=== PATIENT | male | born 1980 | race Caucasian/White ===

== ENCOUNTER 2017-05-21 09:02 | Emergency (ER) | payer MEDICAID ==
[~2017-05-21] VITALS: Ht 152.4 cm; Wt 90.5 kg
[~2017-05-21 09:02] MED LIST: TRAM50TA2 PO
[2017-05-21 09:06] VITALS: Ht 152.4 cm; Wt 90.5 kg
[2017-05-21] MEDS ORDERED: MECLIZINE 12.5 MG TAB PO STA (09:26)
[2017-05-21] MEDS ORDERED: ONDANSETRON (ODT) 4 MG TAB ODT STA (09:26)
--- NOTE | 2017-05-21 10:17 | RADRPT ---
PROCEDURE: CT brain without contrast CLINICAL INDICATION: Head pressure, headache, vertigo and nausea/vomiting TECHNIQUE: CT of the brain without contrast was performed on a multidetector CT scanner, with multi planar reformats. One or more of the following dose reduction techniques were used: Automated expos ure control, adjustment in mA and / or kV according to patient size, use of iterative reconstructive technique. CTDIvol = 44 mGy; DLP = 720 mGy-cm. COMPARISON: None available FINDINGS: No acute intracranial hemorrhage is identified. No extra-axial fluid collection is seen. There is no mass effect. No midline shift is identified. Ventricles and sulci are within normal limits for size and configuration. The density of the brain is within normal limits. Garibay-white differentiation is preserved. Osseous structures are unremarkable. Mastoid air cells and imaged paranasal sinuses grossly clear. IMPRESSION: Unremarkable noncontrast CT of the brain. RPTAT: VV .Brad Dobbins MD, MD Date Time Electronically viewed and signed by .Brad Dobbins MD, on 05/21/2017 10:17 .O/
[2017-05-21] MEDS ORDERED: DIAZEPAM 5 MG TAB PO STA (10:22)
[2017-05-21] MEDS ORDERED: ACETAMINOPHEN 500 MG TAB PO STA (10:23)
[2017-05-21] MEDS ORDERED: MECL-77 PO (10:26)
[2017-05-21] MEDS ORDERED: ONDA4TAB14 PO (10:26)
[2017-05-21] MEDS ORDERED: ACET325T33 PO (10:26)
--- NOTE | 2017-05-21 10:31 | ERD ---
ER Documentation Chief Complaint Date/Time DATE: 05/21/17 TIME: 10:29 Chief Complaint Complains of dizziness since yesterday HPI This is a 37-year-old male presenting to the emergency department complaining of headache and dizziness since yesterday. Patient describes dizziness when he turns his head. He admits to having nausea. He describes his headache as a pressure-like rating it moderate in severity. Patient denies any ear pain, tinnitus, vomiting, vision changes or lethargy. He denies taking any medications for this. Denies trauma ROS All systems reviewed and are negative except as per history of present illness. Medications Home Meds Active Scripts Meclizine Hcl* (Meclizine Hcl*) 25 Mg Tablet, 25 MG PO Q8H Y for DIZZINESS, #30 TAB Prov:LAMINE CARRENO PA-C 05/21/17 Acetaminophen* (Tylenol*) 325 Mg Tablet, 2 TAB PO Q4 Y for PAIN AND OR ELEVATED TEMP, #30 TAB Prov:LAMINE CARRENO PA-C 05/21/17 Ondansetron (Ondansetron Odt) 4 Mg Tab.rapdis, 4 MG PO Q6H Y for NAUSEA AND/OR VOMITING, #20 TAB Prov:LAMINE CARRENO PA-C 05/21/17 Tramadol HCl (Tramadol HCl) 50 Mg Tab, 50 MG PO Q6 Y for PAIN, #10 TAB Prov:WU CALVERT 06/23/15 Allergies Allergies: Coded Allergies: No Known Allergy (Unverified , 07/30/13) PMhx/Soc Medical and Surgical Hx: pt denies Medical Hx, pt denies Surgical Hx History of Surgery: No Anesthesia Reaction: No Hx Neurological Disorder: No Hx Respiratory Disorders: No Hx Cardiac Disorders: No Hx Psychiatric Problems: No Hx Miscellaneous Medical Probl: No Hx Alcohol Use: No Hx Substance Use: No Hx Tobacco Use: No Smoking Status: Never smoker Physical Exam Vitals Vital Signs Date Time Temp Pulse Resp B/P Pulse Ox O2 Delivery O2 Flow Rate FiO2 05/21/17 09:06 97.4 74 20 138/84 96 Physical Exam GENERAL: well-developed/well-nourished, in no apparent distress, non-toxic appearing HENT: NC/AT, bilateral tympanic membrane is normal with good cone of light, nares patent, oropharynx clear without exudates EYES: Conjunctiva normal, PERRLA, EOMI, no nystagmus noted NECK: Supple, no lymphadenopathy PULM: CTA bilaterally, no rales, rhonchi, or wheezing heard CV: Normal S1S2, RRR, good capillary refill GI: Soft, non-distended, normal bowel sounds, non-tender BACK: No midline tenderness, no masses, No CVAT EXT: No clubbing, cyanosis, or edema NEURO: Alert and orientated to person, place, and time. CN II-IIX intact. Gait and coordination were normal. 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 and within normal limits SKIN: Intact, normal turgor PSYCH: Normal mood and mentation, patient denied SI Results 24 hrs Current Medications Medications (Trade) Dose Ordered Sig/Danny Route PRN Reason Start Time Stop Time Status Last Admin Dose Admin Ondansetron HCl (Zofran Odt) 8 mg ONCE STAT ODT 05/21/17 09:26 05/21/17 09:28 DC 05/21/17 09:40 Meclizine HCl (Antivert) 25 mg ONCE STAT PO 05/21/17 09:26 05/21/17 09:28 DC 05/21/17 09:40 Diazepam (Valium) 5 mg ONCE STAT PO 05/21/17 10:22 05/21/17 10:23 DC Acetaminophen (Tylenol Tab) 1,000 mg ONCE STAT PO 05/21/17 10:23 05/21/17 10:24 DC Procedures/MDM This is a 37-year-old male presenting to the emergency department with vertigo and headache, symptoms were reproduced with movement of head. Slight Vincenzo a peripheral cause of vertigo my other differentials include but not limited to include labyrinthitis, vestibular neuritis, Mnire's disease, acoustic neuroma , otitis media and central causes such as vestibular migraine, brainstem ischemia, and multiple sclerosis. Patient did not have neurological symptoms, tinnitus or hearing loss. I since patient was experiencing headaches a CT scan was done, and radiologist that there is no acute intracranial pathology. However, I have given strict precautions to return to the ER if condition is not improving as expected or if condition worsens. In the ED, patient was given Antivert 25mg and Zofran 8mg ODT. Patient was given Tylenol and Valium 5 mg. I have reassessed patient and he was significant feeling a lot better. hemodynamically stable to be discharged home. I have discussed the pathology of the condition. Prescriptions Tylenol and Flexeril have been given. I have discussed to see a primary care physician for follow-up examination and management. Discussed to return to the ER if condition worsens or not improves as expected. Patient expressed that they agreed and understood this plan. Departure Diagnosis: Primary Impression: Vertigo Condition: Stable Patient Instructions: Inner Ear Problems: Causes of Dizziness (Vertigo), Vertigo, Unspecified Additional Instructions: Visite a thorpe jaky capps para un EXAMEN.Regrese a estas instalaciones si no se mejora artem esperbamos o artem le dijimos. [place] toda la medicina alpesh y artem se le indic. Regrese a estas instalaciones si no se mejora artem esperbamos o artem le dijimos. LAMINE CARRENO PA-C May 21, 2017 10:31
== END 2017-05-21 11:10 | disposition home or self-care (01) ==
LOC: FTE 09:02
DX: R42 Dizziness and giddiness (principal); R11.0 Nausea
CPT/HCPCS: 70450; Z7502; Z7610